=== PATIENT | male | born 1960 | race American Indian/Alaskan Native ===

== ENCOUNTER 2019-04-03 14:58 | Emergency (ER) | payer OTHER ==
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
[2019-04-03 18:35] VITALS: BP 118/69
== END 2019-04-03 18:42 | disposition other institution (70) ==
LOC: ED 14:58
DX: T23.341A Burn of third degree of multiple right fingers (nail), including thumb, initial encounter (principal); Z87.891 Personal history of nicotine dependence; X08.8XXA Exposure to other specified smoke, fire and flames, initial encounter; Y93.89 Activity, other specified; Y92.89 Other specified places as the place of occurrence of the external cause; Y99.8 Other external cause status